=== PATIENT | female | born 1995 | race African-American/Black ===

== ENCOUNTER 2019-07-14 18:40 | Emergency (ER) | payer BC, MEDICAID ==
[~2019-07-14] VITALS: Ht 157.5 cm; Wt 87.0 kg
[2019-07-14] MEDS ORDERED: ACETAMINOPHEN 325MG TABLET PO PRN (21:15)
[2019-07-14 21:56] LABS: BASOPHILS % 0.3 % (0.0-2.0); HEMATOCRIT. 35.7 % (36.0-48.0); HEMOGLOBIN. 12.2 g/dL (12.0-16.0); MEAN CORPUSCULAR HEMOGLOBIN 31.5 pg (28.0-32.0); MEAN CORPUSCULAR VOLUME 92.2 fL (81.0-99.0); MEAN PLATELET VOLUME 9.4 fl (7.4-10.4); MONOCYTES % 11.5 % (2.0-8.0); NEUTROPHILS % 68.2 % (40.0-76.0); PLATELET 248 x1000/uL (130-400); RED BLOOD CELL COUNT 3.88 mill/uL (4.2-5.4); RED CELL DISTRIBUTION WIDTH 12.4 % (11.6-14.6)
[2019-07-14 22:04] LABS: CHLORIDE 107 mEq/L (98-107)
[2019-07-14 22:17] LABS: B-HCG QUANTITATIVE 119 mIU/mL (<3)
[2019-07-15 01:10] VITALS: BP 128/71
== END 2019-07-15 01:11 | disposition home or self-care (01) ==
LOC: ER 19:02
DX: G89.18 Other acute postprocedural pain (principal); Z98.890 Other specified postprocedural states
CPT/HCPCS: 36415; 76830; 76856; 80048; 84702; 99284

== ENCOUNTER 2019-07-23 15:25 | Emergency (ER) | payer BC, MEDICAID ==
[~2019-07-23] VITALS: Ht 167.6 cm; Wt 87.0 kg
[2019-07-23] MEDS ORDERED: ACETAMINOPHEN 325MG TABLET PO PRN (16:30)
[2019-07-23 16:34] LABS: CLARITY URINE CLOUDY (CLEAR); COLOR URINE YELLOW (YELLOW); KETONES URINE TRACE (NEGATIVE); LEUKOCYTE ESTERASE URINE NEGATIVE (NEGATIVE); NITRITE URINE NEGATIVE (NEGATIVE); OCCULT BLOOD URINE NEGATIVE (NEGATIVE); PH URINE 6.5 (4.5-8.0); PROTEIN URINE NEGATIVE (NEGATIVE); SPECIFIC GRAVITY URINE 1.027 (1.005-1.030)
[2019-07-23 16:45] LABS: BASOPHILS % 0.1 % (0.0-2.0); EOSINOPHILS % 1.8 % (0.0-5.0); HEMATOCRIT. 28.9 % (36.0-48.0); HEMOGLOBIN. 9.7 g/dL (12.0-16.0); LYMPHOCYTES % 16.1 % (20.0-50.0); MEAN CORPUSCULAR VOLUME 92.1 fL (81.0-99.0); MEAN PLATELET VOLUME 7.2 fl (7.4-10.4); MONOCYTES % 6.3 % (2.0-8.0); NEUTROPHILS % 75.7 % (40.0-76.0); PLATELET 381 x1000/uL (130-400); RED BLOOD CELL COUNT 3.14 mill/uL (4.2-5.4); RED CELL DISTRIBUTION WIDTH 12.8 % (11.6-14.6)
[2019-07-23 16:49] LABS: CHLORIDE 109 mEq/L (98-107)
[2019-07-23 17:13] LABS: B-HCG QUANTITATIVE 3387 mIU/mL (<3)
[2019-07-23 18:19] VITALS: BP 120/72
== END 2019-07-23 18:22 | disposition home or self-care (01) ==
LOC: ER 15:40
DX: O20.0 Threatened abortion (principal); Z3A.01 Less than 8 weeks gestation of pregnancy; Z98.890 Other specified postprocedural states
CPT/HCPCS: 36415; 76801; 81003; 81025; 84702; 86850; 86900; 99284

== ENCOUNTER 2019-08-19 14:17 | Emergency (ER) | payer BC, MEDICAID ==
[~2019-08-19] VITALS: Ht 167.6 cm; Wt 73.0 kg
[2019-08-19 17:46] LABS: CHLORIDE 110 mEq/L (98-107)
[2019-08-19 17:53] LABS: CLARITY URINE CLEAR (CLEAR); COLOR URINE YELLOW (YELLOW); KETONES URINE TRACE (NEGATIVE); LEUKOCYTE ESTERASE URINE NEGATIVE (NEGATIVE); NITRITE URINE NEGATIVE (NEGATIVE); OCCULT BLOOD URINE NEGATIVE (NEGATIVE); PH URINE 6.5 (4.5-8.0); PROTEIN URINE NEGATIVE (NEGATIVE); SPECIFIC GRAVITY URINE 1.028 (1.005-1.030); UROBILINOGEN URINE 0.2 E.U./dL (0.2-1.0)
[2019-08-19 18:09] LABS: B-HCG QUANTITATIVE 18307 mIU/mL (<3)
[2019-08-19 19:30] VITALS: BP 131/74
== END 2019-08-19 19:41 | disposition home or self-care (01) ==
LOC: ER 14:38
DX: O02.1 Missed abortion (principal); O26.891 Other specified pregnancy related conditions, first trimester; Z98.890 Other specified postprocedural states; Z3A.08 8 weeks gestation of pregnancy
CPT/HCPCS: 36415; 76801; 81003; 84702; 86850; 86900; 99284